=== PATIENT | female | born 1995 | race Caucasian/White ===

== ENCOUNTER → 2016-12-29 | Outpatient (CLI) | payer OTHER ==
[2016-12-29 15:06] LABS: CH 29.5; CHCM 31.8; HCT 37.4 % (34.0-46.0); HDW 2.56; HGB 12.1 gm/dL (11.4-16.0); MCH 30.1 pg (25.0-35.0); MCHC 32.3 g/dL (31.0-37.0); MCV 93.2 fL (80.0-100.0); RBC 4.01 m/uL (3.80-5.40); RDW 14.8 % (11.5-15.5); WBC 5.2 k/uL (3.8-10.6)
[2016-12-29 15:20] LABS: Bilirubin, Delta 0.2 mg/dL (0.0-0.2); Total Bilirubin 0.5 mg/dL (0.2-1.3); Total Protein 6.4 g/dL (6.3-8.2)
[2016-12-29 15:26] LABS: Partial Thromboplastin Time 22.8 sec (22.0-30.0); Prothrombin Time 10.3 sec (9.0-12.0)
[2017-01-01 08:18] LABS: Hepatits C Virus RNA, Quant <12 IU/mL (<12); LOG HCV IU/mL <1.08 (<1.08)
== END | disposition home or self-care (01) ==
LOC: LABWHC1 14:09
PROVIDERS: ATTEND Family Medicine Adult Medicine
DX: F41.1 Generalized anxiety disorder (principal); R10.9 Unspecified abdominal pain
CPT/HCPCS: 36415; 80076; 85027; 85610; 85730; 87522